=== PATIENT | male | born 1960 | race Caucasian/White ===

== ENCOUNTER 2019-05-10 07:58 | Day surgery (SDC) | payer BC ==
[2019-05-10] MEDS ORDERED: MIDAZOLAM HCL 2MG/2ML VIAL IV ONE (07:59)
[2019-05-10] MEDS ORDERED: LIDOCAINE 2% MDV (20MG/ML) 20ML VIAL IV ONE (07:59)
[2019-05-10] MEDS ORDERED: PROPOFOL 10 MG/ML VIAL IV ONE (07:59)
--- NOTE | 2019-05-11 07:40 | Operative Note ---
OPERATION: COLONOSCOPY to the cecum with cold snare polypectomy x1. INDICATION: Colorectal cancer screening. The patient reports his last colonoscopy was 2003 at which time a hyperplastic polyp was removed by Dr. Norwood. He returns at this time for screening. He denies current GI complaints. He denies family history of colon cancer. ANESTHESIA: Intravenous sedation was administered by the department of anesthesiology and included Diprivan titrated to effect. PROCEDURE: Following informed consent from this alert individual including a discussion of the risks and benefits of the procedure and an opportunity for the patient to ask questions, the patient was in the left lateral decubitus position. A digital rectal examination was performed. No abnormalities were noted. Following this, the Olympus FNY732 video colonoscope was inserted into the rectum without resistance. The rectal mucosa had a normal appearance with normal folds and distensibility. The sigmoid colon had a few scattered diverticula noted. The colonoscope was advanced farther up through the bowel to the level of the cecum without much difficulty. Throughout the bowel the mucosa appeared normal, the folds were normal, and the bowel was fairly well distensible. The cecum was defined by noting the appendiceal orifice and ileocecal valve. The colon preparation was adequate. From the base of the cecum, the colonoscope was then slowly withdrawn. In the proximal descending colon, there was a 5 mm sessile polyp noted which was removed with cold snare polypectomy and suctioned through the colonoscope into a collection trap. No additional polyps were seen. Again diverticulosis was noted in the sigmoid colon. Retroflexion in the rectum revealed small internal hemorrhoids. The endoscope was straightened and withdrawn. The patient tolerated the procedure well and was returned to the recovery area in stable condition. IMPRESSION: 1. A 5 mm descending colon polyp removed with cold snare polypectomy. 2. Sigmoid diverticulosis. 3. Small internal hemorrhoids. RECOMMENDATIONS: The patient was advised he should receive a copy of his pathology report at home in the next 2-3 weeks. If not, he was asked to call my office to review the results of testing today. Further recommendations forthcoming pending those results. Followup will be with Juan R Raymond DO. As always, thank you for allowing me to participate in the care of your patient. ALPHOSNO
== END 2019-05-10 10:00 | disposition home or self-care (01) ==
LOC: HOP 07:58
PROVIDERS: ATTEND Internal Medicine Gastroenterology
DX: Z12.11 Encounter for screening for malignant neoplasm of colon (principal); Z86.010 Personal history of colon polyps; D12.4 Benign neoplasm of descending colon; K57.30 Diverticulosis of large intestine without perforation or abscess without bleeding; K64.8 Other hemorrhoids; I10 Essential (primary) hypertension; E78.00 Pure hypercholesterolemia, unspecified; N40.0 Benign prostatic hyperplasia without lower urinary tract symptoms